=== PATIENT | female | born 1945 | race Hispanic/Latino ===

== ENCOUNTER 2018-04-27 13:05 | Emergency (ER) | payer MEDICARE, OTHER ==
--- NOTE | 2018-04-27 14:55 | RAD ---
RIGHT FOOT THREE VIEWS: HISTORY: Right foot and toe pain. FINDINGS: Lisfranc joint alignment is within normal limits. Pes planus on the lateral view. Large plantar ent hesophyte at the inferior aspect of the calcaneus. Soft tissue swelling about the forefoot. Osseous structures are demineralized. Mild degenerative changes. No acute fracture, dislocation, or aggres sive osseous erosions. IMPRESSION: 1. Mild degenerative changes. 2. Osteoporosis. 3. Plantar heel spur. POS: JEFFERY
--- NOTE | 2018-04-27 15:02 | RAD ---
RIGHT ANKLE 3 VIEWS: Date: 04/27/18 HISTORY: Right ankle injury. FINDINGS: Ankle mortise is intact. Degenerative changes of the ankle and hindfoot. Soft tissue swelling overlie s the lateral malleolus. No acute fracture or dislocation. IMPRESSION: Soft tissue swelling. No acute osseous abnormalities are demonstrated. POS: JEFFERY
== END 2018-04-27 15:27 | disposition home or self-care (01) ==
LOC: ERS 13:05
DX: S93.401A Sprain of unspecified ligament of right ankle, initial encounter (principal); S90.31XA Contusion of right foot, initial encounter; F32.9 Major depressive disorder, single episode, unspecified; I10 Essential (primary) hypertension; F17.210 Nicotine dependence, cigarettes, uncomplicated; Z71.6 Tobacco abuse counseling; Z86.73 Personal history of transient ischemic attack (TIA), and cerebral infarction without residual deficits; W01.0XXA Fall on same level from slipping, tripping and stumbling without subsequent striking against object, initial encounter
CPT/HCPCS: 99406

== ENCOUNTER 2019-02-14 11:14 | Emergency (ER) | payer MEDICARE ==
[2019-02-14] MEDS ORDERED: Cyclobenzaprine 10 MG TAB ONE (12:03)
[2019-02-14] MEDS ORDERED: Ketorolac Tromethamine 30 MG/ML VIAL ONE (12:03)
--- NOTE | 2019-02-14 12:52 | RAD ---
XR Shoulder Rt 3 View STANDARD: 02/14/2019 12:00 PM CLINICAL INDICATION: Pain, injury COMPARISON: None. FINDINGS: Fracture:No fracture. Arthropathy:Postoperative right shoulder in place. Moderate osteoarthritis of right AC joint. Incidental findings:None of significance. IMPRESSION: 1. No acute osseous abnormality.
--- NOTE | 2019-02-14 12:53 | RAD ---
Exam: Chest 2 views HISTORY:Injury, pain Comparison: None FINDINGS: Lungs: Hyperinflated with interstitial prominence bilaterally Cardiac silhouette:Enlarged Pulmonary vessels: Mild engorgement Pleural Spaces: Clear Pneumothorax: None Osseous abnormalities: None of acuity. IMPRESSION: COPD Mild CHF
== END 2019-02-14 17:13 | disposition home or self-care (01) ==
LOC: ERS 11:14
DX: S20.219A Contusion of unspecified front wall of thorax, initial encounter (principal); S40.011A Contusion of right shoulder, initial encounter; I10 Essential (primary) hypertension; Z86.73 Personal history of transient ischemic attack (TIA), and cerebral infarction without residual deficits; F32.9 Major depressive disorder, single episode, unspecified; F17.210 Nicotine dependence, cigarettes, uncomplicated; V43.52XA Car driver injured in collision with other type car in traffic accident, initial encounter
CPT/HCPCS: 71046; 96372; J1885

== ENCOUNTER 2019-06-17 17:31 | Observation (INO) | payer MEDICARE ==
[~2019-06-17 17:31] MED LIST: ISOVUE-370 76%-LOCM 1 ML ONE
--- NOTE | 2019-06-17 18:19 | RAD ---
EXAM: Chest Two Views 06/17/2019 6:16 PM HISTORY: Fall with chest pain COMPARISON: February 14, 2019 FINDINGS: Heart: Stable mild cardiomegaly Pulmonary vessels: Normal. Costophrenic angles: Clear. Lungs: Stable COPD Pneumothorax: None. Osseous structures:Stable right total shoulder prosthesis. There is scattered degenerative and osteoa rthritic change present. Mild thoracolumbar scoliosis. Additional findings: None. IMPRESSION: No significant acute intrathoracic disease.
[2019-06-17 20:22] LABS: #Eosinphils 0.1 thou/uL (0.0-0.7); #Lymphocytes 1.6 thou/uL (1.20-3.40); #Monocytes 0.5 thou/uL (0.11-0.59); #Neutrophils 5.9 thou/uL (1.40-6.50); %Basophils 0.6 % (0.0-1.0); %Eosinophils 1.8 % (0.0-10.0); %Lymphocytes 19.8 % (21.0-51.0); %Monocytes 6.1 % (0.0-10.0); %Neutrophils 71.7 % (42.0-75.0); Hemoglobin 13.9 g/dL (12.0-16.0); Mean Corpuscular HGB CONC 33.3 g/dL (32.0-36.0); Mean Corpuscular Hemoglobin 31.9 pg (27.0-31.0); Mean Corpuscular Volume 95.7 fL (78.0-98.0); Mean Platelet Volume 8.9 fL (7.4-10.4); Platelet Count 270 thou/uL (130-400); RBC Distribution Width 13.7 % (11.5-14.5); Red Blood Cell (RBC) Count 4.37 mill/uL (4.20-5.40); White Blood Cell (WBC) Count 8.3 thou/uL (4.8-10.8)
[2019-06-17 20:44] LABS: ALT (SGPT) 12 U/L (8-55); AST (SGOT) 21 U/L (5-34); Albumin 4.2 g/dL (3.4-4.8); Alkaline Phosphatase 109 U/L (40-150); Anion Gap 16 mmol/L (10-20); BUN (Urea Nitrogen) 23 mg/dL (9.8-20.1); Bilirubin, Total 0.3 mg/dL (0.2-1.2); Calc. Creatinine Clearance 0 mL/min (70-130); Calcium 9.2 mg/dL (7.8-10.44); Carbon Dioxide 20 mmol/L (23-31); Chloride 109 mmol/L (98-107); Estimated GFR-MDRD 74; Globulin 3.2 g/dL (2.4-3.5); Glucose 86 mg/dL (83-110); Potassium 4.4 mmol/L (3.5-5.1); Protein, Total 7.4 g/dL (6.0-8.3); Sodium 141 mmol/L (136-145)
[2019-06-17] MEDS ORDERED: Nitroglycerin 2% Ointment 1 INCH/1 GM Packet ONE (21:01)
[2019-06-17] MEDS ORDERED: Aspirin Chewable 81 MG TAB ONE (22:23)
[2019-06-17] MEDS ORDERED: Acetaminophen 325 MG TAB ONE (22:23)
[2019-06-17] MEDS ORDERED: Nitroglycerin 0.4 MG TAB 1 EACH ONE (22:23)
--- NOTE | 2019-06-17 23:30 | CT ---
CTA Angio Chest W WO Con 06/17/2019 10:53 PM Indication: Chest pain and dyspnea Technique: Multiple CTA images were obtained of the thorax with IV contrast. 3D reformatted images were constructed from the raw data. Comparison: None Findings: Pulmonary arteries: No central or segmental pulmonary embolus is evident. Heart and Great Vessels: There are mild vascular calcifications involving thoracic aorta and coronar y arteries. Lungs:There are areas of subsegmental volume loss within the lingula and right middle lobe. No conflu ent airspace opacity is evident. Pleural space: Clear. Upper Abdomen: No acute abnormality. Osseous Structures: No acute osseous abnormality. Impression: No central or segmental pulmonary embolus.
[2019-06-17] MEDS ORDERED: Labetalol HCl 100 MG/20 ML VIAL ONE (23:31)
[2019-06-18 00:08] LABS: Cardiac Risk 1.8 (Less than 4.5)
[2019-06-18 00:19] LABS: CKMB 1.8 ng/mL (0-6.6)
[2019-06-18 01:14] VITALS: BMI 29.5
[2019-06-18 02:33] LABS: Troponin I 0.049 ng/mL (< 0.028)
[2019-06-18] MEDS: hydrALAZINE 20 MG/ML VIAL SLOW IVP PRN ×2 (04:12→15:30)
[2019-06-18] MEDS ORDERED: Labetalol HCl 100 MG/20 ML VIAL SLOW IVP PRN (04:46)
[2019-06-18] MEDS ORDERED: Acetaminophen 325 MG TAB PO PRN (09:09)
[2019-06-18] MEDS ORDERED: Ondansetron ODT 4 MG TAB PO PRN (09:09)
[2019-06-18] MEDS ORDERED: Ondansetron PF 4 MG/2 ML Vial IVP PRN (09:09)
[2019-06-18 11:36] LABS: #Eosinphils 0.1 thou/uL (0.0-0.7); #Monocytes 0.4 thou/uL (0.11-0.59); #Neutrophils 5.5 thou/uL (1.40-6.50); %Basophils 0.5 % (0.0-1.0); %Eosinophils 1.8 % (0.0-10.0); %Lymphocytes 14.5 % (21.0-51.0); %Monocytes 5.5 % (0.0-10.0); %Neutrophils 77.7 % (42.0-75.0); Hemoglobin 13.1 g/dL (12.0-16.0); Mean Corpuscular HGB CONC 32.1 g/dL (32.0-36.0); Mean Corpuscular Hemoglobin 30.2 pg (27.0-31.0); Mean Corpuscular Volume 94.2 fL (78.0-98.0); Platelet Count 256 thou/uL (130-400); RBC Distribution Width 13.7 % (11.5-14.5); Red Blood Cell (RBC) Count 4.34 mill/uL (4.20-5.40); White Blood Cell (WBC) Count 7.1 thou/uL (4.8-10.8)
[2019-06-18 12:00] LABS: Anion Gap 13 mmol/L (10-20); BUN (Urea Nitrogen) 19 mg/dL (9.8-20.1); Calc. Creatinine Clearance 67 mL/min (70-130); Calcium 8.6 mg/dL (7.8-10.44); Carbon Dioxide 20 mmol/L (23-31); Chloride 106 mmol/L (98-107); Estimated GFR-MDRD 70; Glucose 151 mg/dL (83-110); Potassium 3.4 mmol/L (3.5-5.1); Sodium 136 mmol/L (136-145)
[2019-06-18 12:14] LABS: Free T4 (Free Thyroxine) 0.95 ng/dL (0.70-1.48); Thyroid Stimulating Hormone 1.4062 uIU/mL (0.35-4.94)
[2019-06-18] MEDS ORDERED: Prevnar 13-Val Conj/PF 0.5 ML SYRINGE IM ONE (21:00)
[2019-06-18] MEDS ORDERED: traZODone HCl 50 MG TAB PO SCH (21:00)
[2019-06-19 04:19] LABS: #Basophils 0.1 thou/uL (0.0-0.2); #Eosinphils 0.2 thou/uL (0.0-0.7); #Lymphocytes 1.9 thou/uL (1.20-3.40); #Monocytes 0.5 thou/uL (0.11-0.59); #Neutrophils 4.5 thou/uL (1.40-6.50); %Basophils 1.1 % (0.0-1.0); %Eosinophils 2.6 % (0.0-10.0); %Lymphocytes 26.8 % (21.0-51.0); %Monocytes 6.7 % (0.0-10.0); %Neutrophils 62.9 % (42.0-75.0); Hemoglobin 14.2 g/dL (12.0-16.0); Mean Corpuscular HGB CONC 34.3 g/dL (32.0-36.0); Mean Corpuscular Hemoglobin 32.5 pg (27.0-31.0); Mean Corpuscular Volume 94.7 fL (78.0-98.0); Mean Platelet Volume 8.1 fL (7.4-10.4); Platelet Count 262 thou/uL (130-400); RBC Distribution Width 13.6 % (11.5-14.5); Red Blood Cell (RBC) Count 4.37 mill/uL (4.20-5.40); White Blood Cell (WBC) Count 7.2 thou/uL (4.8-10.8)
[2019-06-19 04:21] LABS: Anion Gap 13 mmol/L (10-20); BUN (Urea Nitrogen) 13 mg/dL (9.8-20.1); Calc. Creatinine Clearance 85 mL/min (70-130); Calcium 9.2 mg/dL (7.8-10.44); Carbon Dioxide 21 mmol/L (23-31); Chloride 109 mmol/L (98-107); Estimated GFR-MDRD Greater than 90; Glucose 85 mg/dL (83-110); Potassium 4.2 mmol/L (3.5-5.1); Sodium 139 mmol/L (136-145)
--- NOTE | 2019-06-19 08:19 | HP ---
PRIMARY CARE PHYSICIAN: Dr. Shahram Rees. CHIEF COMPLAINT: An elevated blood pressure. HISTORY OF PRESENT ILLNESS: Ms. Fanny Marquez is a pleasant 73-year-old female with past medical history of hypertension, hyperlipidemia, and a transient ischemic attack, who had presented to [facility] late last night. She states that she had a mechanical fall on Monday, which she was walking and had rolled her left ankle where she had suffered a fall secondary to a mechanical fall. She states when she was on the ground, she had some slight chest pain and some shortness of breath due to the impact. However, these symptoms resolved. She states that when she and her family were taken to a local clinic, she underwent an x-ray, which was found to be normal and had showed no fracture. It was at that time that the staff noticed that her blood pressure was high and had recommended her to be seen in the ER. She then was transported to the local ER at [facility]. There was also determined that her blood pressure is elevated in the 200s over 100s and got as high as 205/112. She had received an IV 10 mg push of labetalol, sublingual nitroglycerin, aspirin and 1 inch of transdermal nitroglycerin paste, which had seemed to help with her symptoms. The patient denied any fever, chills, any headache, blurred vision, dizziness, any chest pain, palpitations, shortness of breath, abdominal pain, nausea, vomiting, or any other symptoms at that time. Her serial troponins were trended and found to be normal originally and had elevated to an indeterminate range of 0.030 and 0.049; however, did trend down to 0.023 after her blood pressure improved. The patient had no further symptoms of chest pain at that time. However, the D-dimer was slightly elevated at 0.56. The CTA of chest was also performed and found no signs of PE at this time. A portable chest x-ray was also performed and showed no significant acute intrathoracic disease. The patient's TSH and T4 were both normal and all other lab work was essentially unremarkable. She was started on IV hydralazine and IV labetalol as needed for any further elevated blood pressures. Repeat blood pressures did improve to the systolic 160s or 170s and then later 136/62. REVIEW OF SYSTEMS: All other systems reviewed and found to be negative unless mentioned in the HPI. PAST MEDICAL HISTORY: Hypertension, hyperlipidemia, transient ischemic attack. PAST SURGICAL HISTORY: Right arm reconstruction and hernia repair in 1999. PSYCHIATRIC HISTORY: Includes depression. SOCIAL HISTORY: The patient reports drinking roughly 2 to 3 times a week socially and also states that she smokes about a pack of cigarettes per week; however, denies any further illicit drug use. KNOWN ALLERGIES: No known drug allergies. CURRENT HOME MEDICATIONS: 1. Diltiazem 180 mg p.o. daily. 2. Trazodone 50 mg p.o. at bedtime. 3. Ibuprofen 800 mg p.o. q.8 hours p.r.n. pain. PHYSICAL EXAMINATION: VITAL SIGNS: BP 136/62, pulse 78, respirations 20, temperature 97.7, O2 saturation 94% on room air. GENERAL: The patient is awake, alert, and oriented x3. She is currently lying comfortably in bed and in no acute distress. Her family is at bedside. HEENT: Atraumatic, normocephalic. Pupils are round and reactive to light. Extraocular muscles intact. Moist mucous membranes noted. NECK: Soft, supple. Trachea midline. CARDIOVASCULAR: Positive S1 and S2. Regular rate and rhythm. No murmur auscultated. RESPIRATORY: Clear to auscultation bilaterally. No wheezes, rales, or rhonchi. ABDOMEN: Soft, nontender. Bowel sounds present. MUSCULOSKELETAL: Strength 5+ bilaterally upper and lower extremities. Moves all extremities equal. Left ankle is nontender to palpation. No edema noted. NEUROLOGIC: Cranial nerves 2 through 12 grossly intact. No focal deficits noted. Speech intact and normal. Gait not assessed. SKIN: Warm, dry, and intact. No rashes. No ulceration noted. PSYCHIATRIC: Good mood and affect. LABORATORY DATA: WBC 27.1, RBC 4.34, hemoglobin 13.1, platelets 256. D-dimer 0.56. Sodium 136, potassium 3.4, anion gap 13, BUN 19, creatinine 0.80, estimated GFR is 70, glucose 151. Troponin 0.023, 0.030, 0.049, 0.023. BNP 56.9, CK-MB 1.8, triglycerides 62, cholesterol 217, LDL 81, HDL 121, free T4 0.95. TSH 1.4062. DIAGNOSTIC IMAGING: Two-view chest x-ray shows no significant acute changes. CTA of chest showed no signs of PE at this time. ASSESSMENT AND PLAN: 1. Hypertensive urgency. She will be resumed on her home regimen at this time. Her blood pressure and other vital signs will be monitored closely and she will also be treated with IV hydralazine and labetalol as needed for any further elevated blood pressures, these have been trending down and have been normalized. She will be likely monitored overnight and if she is stable tomorrow, she will likely be discharged in the morning. She is currently asymptomatic at this time and her troponins also trended down. She has no longer had any further chest pain, palpitations, or shortness of breath and normal EKG. Therefore, likely no further cardiac workup at this time is needed. 2. History of hypertension as above. 3. Hyperlipidemia. 4. Deep venous thrombosis and gastrointestinal prophylaxis. 5. Code status, full code. 6. Surrogate decision maker is her daughter, Dwight. DISPOSITION: Pending further workup and clinical findings. Job ID: [id number]
[2019-06-19] MEDS ORDERED: Amlodipine 5 MG TAB PO SCH ×2 (09:00→12:30)
[2019-06-19] MEDS ORDERED: Enoxaparin Sodium 40 MG/0.4 ML SYRINGE SC SCH (09:00)
[2019-06-19 11:42] VITALS: TEMP 97.6
[2019-06-19] MEDS ORDERED: Aspirin 81 mg Enteric Coated Tablet PO SCH (13:15)
[2019-06-19 14:09] VITALS: BP 158/77
[2019-06-20] MEDS ORDERED: Amlodipine 10 MG TAB PO SCH (09:00)
[2019-06-20] MEDS ORDERED: Aspirin 81 mg Enteric Coated Tablet PO SCH (09:00)
[2019-06-20] MEDS ORDERED: Amlodipine 5 MG TAB PO SCH (09:00)
--- NOTE | 2019-06-22 15:06 | EKG ---
Test Reason : CP Blood Pressure : / mmHG Vent. Rate : 080 BPM Atrial Rate : 080 BPM P-R Int : 178 ms QRS Dur : 090 ms QT Int : 390 ms P-R-T Axes : 062 021 056 degrees QTc Int : 449 ms Normal sinus rhythm Possible Left atrial enlargement Left ventricular hypertrophy Confirmed by SORIN JONES ([id number]), publishing editor TRIXIE KEITH ([id number] on 06/22/2019 3:06:28 PM Referred By: Confirmed By:SORIN JONES
== END 2019-06-19 14:58 | disposition home or self-care (01) ==
LOC: ERS 17:31 → 2SE 22:51
PROVIDERS: ADMIT Hospitalist; ATTEND Hospitalist
DX: I16.0 Hypertensive urgency (principal); I10 Essential (primary) hypertension; E78.5 Hyperlipidemia, unspecified; F17.210 Nicotine dependence, cigarettes, uncomplicated; F32.9 Major depressive disorder, single episode, unspecified; Z86.73 Personal history of transient ischemic attack (TIA), and cerebral infarction without residual deficits; Z79.899 Other long term (current) drug therapy; Z91.81 History of falling
CPT/HCPCS: 71046; 71275; 80048 ×2; 80053; 80061; 82553; 83880; 84439; 84443; 84484 ×3; 85025 ×3; 85379; 93005; 96372; 96374; 96375; 96376; 97139 ×2; 99285; G0378 ×3; 36415; J0360; J1650; Q9966